=== PATIENT | male | born 1950 | race African-American/Black ===

== ENCOUNTER 2022-01-29 12:36 | Emergency (ER) | payer BC, SELFPAY ==
--- NOTE | ~2022-01-29 | XR_ITS ---
EXAMINATION: XR hip RT min 2V DATE: 01/29/2022 13:36 INDICATION: Right hip pain. TECHNIQUE: 2 views of right hip were obtained. COMPARISON: None. FINDINGS: Bone alignment is normal. No fracture. There is mild right hip osteoarthritis. IMPRESSION: 1. Mild right hip osteoarthritis. Reviewed, dictated and finalized at location B.
[2022-01-29 13:17] VITALS: BP 195/105; PULSE 86; RESP 17; TEMP 36.6; O2SAT 98
--- NOTE | 2022-01-29 14:44 | ED.GENADULT ---
HPI - General Adult General Chief complaint: Extremity Injury, Lower Stated complaint: Right Hip/Leg Pain Time Seen by Provider: 01/29/22 13:57 Source: patient Mode of arrival: ambulatory Limitations: no limitations History of Present Illness HPI narrative: 71-year-old male presenting to the emergency department for evaluation of 2 weeks of right hip pain. Patient describes a sharp pain that radiates from his right lower back through his buttock and down his leg. Patient has been taking Advil for pain control and states that previously the pain had been constant but now the pain is only worsened with movement. Patient has no prior history of sciatica. Patient denies any recent falls or injuries. Related Data Allergies Allergy/AdvReac Type Severity Reaction Status Date / Time No Known Allergies Allergy Verified 01/29/22 13:20 Course Vital Signs Vital signs: Vital Signs Temperature 97.8 F 01/29/22 13:17 Pulse Rate 86 01/29/22 13:17 Respiratory Rate 17 01/29/22 13:17 Blood Pressure 195/105 H 01/29/22 13:17 Pulse Oximetry 98 01/29/22 13:17 Temperature 97.8 F 01/29/22 13:17 Pulse Rate 86 01/29/22 13:17 Respiratory Rate 17 01/29/22 13:17 Blood Pressure 195/105 H 01/29/22 13:17 Pulse Oximetry 98 01/29/22 13:17 Medical Decision Making Vital Signs Vital Signs: Vital Signs Temperature 97.8 F 01/29/22 13:17 Pulse Rate 86 01/29/22 13:17 Respiratory Rate 17 01/29/22 13:17 Blood Pressure 195/105 H 01/29/22 13:17 Pulse Oximetry 98 01/29/22 13:17 Temperature 97.8 F 01/29/22 13:17 Pulse Rate 86 01/29/22 13:17 Respiratory Rate 17 01/29/22 13:17 Blood Pressure 195/105 H 01/29/22 13:17 Pulse Oximetry 98 01/29/22 13:17 Imaging Data Radiologist's impression: Impressions Hip X-Ray 01/29/22 13:37 IMPRESSION: 1. Mild right hip osteoarthritis.
== END 2022-01-29 15:42 | disposition home or self-care (01) ==
LOC: ANHED 15:36
PROVIDERS: Emergency Provider Emergency Medicine; PCP Family Medicine
DX: M54.41 Lumbago with sciatica, right side (principal)
CPT/HCPCS: 73502; 99283